=== PATIENT | female | born 1980 | race Caucasian/White ===

== ENCOUNTER 2018-02-07 07:57 | Emergency (ER) | payer OTHER ==
[2018-02-07 08:17] VITALS: BP 152/95
--- NOTE | 2018-02-07 08:38 | UC ---
[facility] HPI - HPI Summary HPI Summary: dental pain x 2 days worse over the past day , pain is sever, could not sleep last night due to pain no fever, no chills - History of Current Complaint Chief Complaint: UCDentalProblem Stated Complaint: DENTAL COMPLAINT Time Seen by Provider: 02/07/18 08:25 Hx Obtained From: Patient Hx Last Menstrual Period: 01/31/18 ?: No Onset/Duration: Gradual Onset, Lasting Days - 2, Still Present Severity: Severe Pain Intensity: 8 Aggravating Factor(s): Cold, Chewing Alleviating Factor(s): Nothing Dental: 1 - dental pain 10 to 16 - Allergies/Home Medications Allergies/Adverse Reactions: Allergies Allergy/AdvReac Type Severity Reaction Status Date / Time sulfamethoxazole AdvReac Intermediate GI Upset Verified 02/07/18 08:18 [From Bactrim] trimethoprim [From Bactrim] AdvReac Intermediate GI Upset Verified 02/07/18 08: 18 erythromycin base AdvReac GI Upset Verified 02/07/18 08:18 [From Lewis-Tab] Home Medications: Home Medications Ibuprofen TAB* [Motrin TAB* 800 MG] 800 mg PO Q6HR 02/07/18 [History Confirmed 02/07/18] PMH/Surg Hx/FS Hx/Imm Hx Psychological History: Anxiety, Depression - Surgical History Surgical History: Yes Surgery Procedure, Year, and Place: [facility] - Family History Known Family History: Positive: Cardiac Disease - Social History Alcohol Use: Weekly Substance Use Type: None Smoking Status (MU): Heavy Every Day Tobacco Smoker Type: Cigarettes Amount Used/How Often: 1 PK DAILY Review of Systems Constitutional: Negative Skin: Negative Eyes: Negative ENT: Dental Pain Respiratory: Negative Cardiovascular: Negative Gastrointestinal: Negative Is Patient Immunocompromised?: No All Other Systems Reviewed And Are Negative: Yes Physical Exam Triage Information Reviewed: Yes Appearance: Well-Nourished, Pain Distress Vital Signs: Initial Vital Signs Temp 99.3 F 02/07/18 08:11 Pulse 102 02/07/18 08:11 Resp 18 02/07/18 08:11 BP 152/95 02/07/18 08:11 Pulse Ox 99 02/07/18 08:11 Vital Signs Reviewed: Yes Eye Exam: Normal Eyes: Positive: Conjunctiva Clear ENT: Positive: Normal ENT inspection, Hearing grossly normal, Pharynx normal Dental: Positive: Percussion Tenderness @ - 10 to 16, Gross Decay/Caries @ - 10 to 16 will multiple missing teeth Neck: Positive: Supple, Nontender, No Lymphadenopathy Respiratory: Positive: Chest non-tender, Lungs clear, Normal breath sounds Cardiovascular: Positive: RRR, No Murmur, Pulses Normal Dental Complaint Course/Dx - Differential Dx/Diagnosis Provider Diagnoses: Dental pain Discharge - Sign-Out/Discharge Documenting (check all that apply): Discharge/Admit/Transfer - Discharge Plan Condition: Stable Disposition: HOME Prescriptions: Clindamycin HCl 300 mg PO Q6H #40 capsule Hydrocodone/Acetaminophen [[place] 5-325 Tablet] 1 each PO Q6H PRN #15 tablet MDD 4 tabs PRN Reason: Pain Patient Education Materials: Toothache (ED) Referrals: Sweta Coronado [Primary Care Provider] - If Needed Additional Instructions: follow up with your dentist zuri - Billing Disposition and Condition Condition: STABLE Disposition: HOME
== END 2018-02-07 08:38 | disposition home or self-care (01) ==
LOC: UCCORT 07:57
DX: K08.89 Other specified disorders of teeth and supporting structures (principal); F17.210 Nicotine dependence, cigarettes, uncomplicated; Z88.1 Allergy status to other antibiotic agents; Z88.2 Allergy status to sulfonamides
CPT/HCPCS: 99212; G0463